=== PATIENT | male | born 1960 | race Caucasian/White ===

== ENCOUNTER 2022-09-16 01:41 | Inpatient (IN) | payer OTHER ==
[2022-09-16] VITALS (60 sets, daily range): BP systolic 93–169; BP diastolic 44–88
[~2022-09-16] VITALS: Ht 175.3 cm; Wt 75.7 kg
--- NOTE | 2022-09-16 01:58 | NUR ---
[id number] FROM [facility] C/O WORSENING SOB & WEAKNESS X3 WEEKS. UPON ARRIVAL SATING 99% ON O2 2LPM. ALSO HYPOTENSIVE, SBP AT 70-80'S.PT IS AAO X 4, NOT IN DISTRESS, BREATHING DOES NOT APPEAR LABORED. PT ATTACHED TO MONITOR AND PULSE OX. AWAITING MD AL
--- NOTE | 2022-09-16 02:01 | NUR ---
TOP SPOTTER AT BEDSIDE
--- NOTE | 2022-09-16 02:08 | NUR ---
EMT AT BEDSIDE FOR EKG
[2022-09-16] MEDS ORDERED: MORPHINE SULFATE INJ 2 MG/ML DISP.SYRIN IV ONE (02:30)
[2022-09-16] MEDS ORDERED: BUMETANIDE INJ 0.25 MG/ML VIAL IV ONE (02:30)
[2022-09-16] MEDS ORDERED: ONDANSETRON HCL/PF 4 MG/2 ML VIAL ONE ×2 (02:30→06:57)
[2022-09-16] MEDS ORDERED: FENTANYL PF 100MCG/2ML AMPUL IV ONE (02:30)
[2022-09-16] MEDS ORDERED: ONDANSETRON HCL/PF 4 MG/2 ML VIAL IV ONE ×2 (02:30→07:00)
[2022-09-16] MEDS ORDERED: BUMETANIDE INJ 0.25 MG/ML VIAL ONE (02:32)
[2022-09-16 03:06] LABS: BASOPHILS % (AUTO) 0.8 % (0.0-2.0); EOSINOPHILS % (AUTO) 1.3 % (0.0-6.0); HEMATOCRIT 35 % (39-51); HEMOGLOBIN 11.4 g/dL (13.5-17.5); LYMPHOCYTES # (AUTO) 0.6 K/uL (0.8-4.8); LYMPHOCYTES % (AUTO) 10.7 % (20.0-44.0); MEAN CORPUSCULAR HGB CONC 33 g/dl (31.0-36.0); MEAN CORPUSCULAR VOLUME 95 fL (80-96); MONOCYTES # (AUTO) 0.5 K/uL (0.1-1.30); MONOCYTES % (AUTO) 9.4 % (2.0-12.0); NEUTROPHILS % (AUTO) 77.8 % (43.0-81.0); PLATELET COUNT (AUTO) 214 K/uL (150-450); RED BLOOD CELL COUNT(AUTO) 3.69 MIL/uL (4.5-6.0); WHITE BLOOD COUNT (AUTO) 5.2 K/uL (4.3-11.0)
[2022-09-16 03:29] LABS: CALCIUM, SERUM 8.8 mg/dL (8.5-10.1); CARBON DIOXIDE 25 mmol/L (21-32); CHLORIDE 91 mmol/L (98-107); CREATININE 2.6 mg/dL (0.6-1.3); GLUCOSE 163 mg/dL (74-106); POTASSIUM 3.9 mmol/L (3.5-5.1); SODIUM SERUM 128 mmol/L (136-145); UREA NITROGEN, BLOOD 75 mg/dL (7-18)
--- NOTE | 2022-09-16 04:01 | NUR ---
DR GAYTAN ON THE PHONE WITH MELBA HAWKINS
[2022-09-16] MEDS ORDERED: NITROGLYCERIN 0.4 MG/TAB BOTTLE SL PRN (05:30)
[2022-09-16] MEDS ORDERED: NOREPINEPHRINE 4 MG/4 ML AMPUL IV ONE (05:36)
--- NOTE | 2022-09-16 05:45 | NUR ---
INITIATED LEVOPHED 8MG IN NS 250; @0.1MCG/KG/HR BP 95/56 ( NOT ENOUGHT LEVO VIALS TO MAKE CONCENTRATE OF 32MG AT THIS MOMENT) Addendum: 09/16/22 at 0549 by CHIDI INITIATED LEVOPHED 8MG IN NS 250; @0.1MCG/KG/MIN BP 95/56 ( NOT ENOUGHT LEVO VIALS TO MAKE CONCENTRATE OF 32MG AT THIS MOMENT)
[2022-09-16] MEDS: NOREPINEPHRINE 32 MG in IV NS 0.9% 218 ML IV PRN ×3 (05:46→09:42)
--- NOTE | 2022-09-16 05:50 | NUR ---
TITRATED LEVOPHED @0.2MCG/KG/MIN IN LEVOPHEN 8MG IN NS 250. BP 89/60
--- NOTE | 2022-09-16 07:15 | NUR ---
TELEPHONE CALL TO PHARMACY, ADVISED TO BRING LEVO 32 MG THERE IS NOT ENOUGH EARLIER. PER PHARMACIST, THEY WILL BRING BUT WILL HAVE TO WAIT, WILL ENDORSE TO AM SHIFT RN
--- NOTE | 2022-09-16 08:06 | NUR ---
GOT BED 258 ADMITTING INFORMED.
--- NOTE | 2022-09-16 08:16 | NUR ---
Report given to Juan RN-ICU, pt to go to Room# 256 Patient AOx4, VSS, discussed POVC with patient, pt verbalized agreement.
[2022-09-16] MEDS ORDERED: INSU100V7 SQ (08:29)
[2022-09-16] MEDS ORDERED: ATOR40TA PO (08:29)
[2022-09-16] MEDS ORDERED: BUME1TAB8 PO (08:29)
[2022-09-16] MEDS ORDERED: ASPI-1420 PO (08:29)
[2022-09-16] MEDS ORDERED: ABAC1TAB15 PO (08:29)
[2022-09-16] MEDS ORDERED: INSU100I14 SQ (08:29)
[2022-09-16] MEDS ORDERED: CHOL100043 PO (08:29)
[2022-09-16] MEDS ORDERED: CARV6.252 PO (08:29)
[2022-09-16] MEDS: ENOXAPARIN SODIUM 40 MG/0.4 ML DISP.SYRIN SQ SCH ×2 (09:00→10:19)
[2022-09-16] MEDS ORDERED: MORPHINE SULFATE INJ 2 MG/ML DISP.SYRIN IV PRN (10:00)
[2022-09-16] MEDS: MORPHINE SULFATE INJ 2 MG/ML DISP.SYRIN IV PRN ×2 (10:18→23:50)
[2022-09-16] MEDS: ASPIRIN EC 81 MG TABLET.DR PO SCH (10:18)
[2022-09-16] MEDS: BUMETANIDE INJ 4 MG in IV D5W 34 ML IV ONE ×2 (10:19→11:51)
--- NOTE | 2022-09-16 10:41 | NUR ---
PATIENT REFUSED ENOXAPARIN. EXPLAINED THE IMPORTANCE OF THE MEDICATION TO THE PATIENT. PATIENT STATES "EVEN THE THOUGHT OF NEEDLES MAKE ME QUEASY, I DON'T WANT IT." WILL CONTINUE PLAN OF CARE AND ANTICIPATE NEEDS.
[2022-09-16] MEDS: CEFTRIAXONE 1 G in IV D5W 50 ML IV SCH (10:51)
[2022-09-16] MEDS: IV NS 0.9% 250 ML IV PRN (10:52)
[2022-09-16] MEDS ORDERED: DoBUTamine 500 MG/250 ML PIGGYBACK IV ONE (11:30)
[2022-09-16] MEDS ORDERED: *INSULIN REGULAR(HUMULIN R)HUM 100 UNIT/ML VIAL SQ PRN (12:00)
[2022-09-16] MEDS ORDERED: DEXTROSE 50%-WATER 50 ML DISP.SYRIN IV PRN (12:00)
[2022-09-16] MEDS ORDERED: DOBUTamine 500 MG in IV D5W 210 ML IV PRN ×2 (12:00→13:00)
[2022-09-16] MEDS: BLOOD SUGAR DIAGNOSTIC 1 EACH STRIP VI SCH ×3 (12:22→23:05)
[2022-09-16] MEDS: INSULIN REGULAR, HUMAN 100 UNIT/ML 3 ML VIAL SQ PRN ×2 (13:19→16:53)
[2022-09-16] MEDS: DOBUTamine 500 MG in IV D5W 210 ML IV PRN (13:38)
[2022-09-16] MEDS: diphenhydrAMINE HCL 50 MG/ML VIAL IV PRN (16:45)
--- NOTE | 2022-09-16 19:09 | NUR ---
HAND OFF REPORT GIVEN TO KEESHA SMALL FOR CONTINUATION OF CARE.
[2022-09-17] VITALS (94 sets, daily range): BP systolic 90–146; BP diastolic 45–76
--- NOTE | 2022-09-17 00:49 | NUR ---
ICU/[employer] GUIDANCE COUNSELOR PT WAS GIVEN MORPHINE 4MG IVP FOR THIS PT FOR PAIN RATED 10/10 TO BACK. CHARGE NURSE MADE AWARE AND CARRIED OUT THIS ORDER. CALL LIGHT WITHIN REACH, WILL MONITOR THIS PT.
[2022-09-17 04:27] LABS: BASOPHILS % (AUTO) 0.5 % (0.0-2.0); EOSINOPHILS % (AUTO) 0.6 % (0.0-6.0); HEMATOCRIT 35 % (39-51); HEMOGLOBIN 11.5 g/dL (13.5-17.5); LYMPHOCYTES # (AUTO) 0.7 K/uL (0.8-4.8); LYMPHOCYTES % (AUTO) 9.9 % (20.0-44.0); MEAN CORPUSCULAR HGB CONC 33 g/dl (31.0-36.0); MEAN CORPUSCULAR VOLUME 94 fL (80-96); MONOCYTES # (AUTO) 0.6 K/uL (0.1-1.30); MONOCYTES % (AUTO) 8.9 % (2.0-12.0); NEUTROPHILS # (AUTO) 5.7 K/uL (1.8-8.9); NEUTROPHILS % (AUTO) 80.1 % (43.0-81.0); PLATELET COUNT (AUTO) 259 K/uL (150-450); RED BLOOD CELL COUNT(AUTO) 3.67 MIL/uL (4.5-6.0); WHITE BLOOD COUNT (AUTO) 7.1 K/uL (4.3-11.0)
[2022-09-17] MEDS: CEFTRIAXONE 1 G in IV D5W 50 ML IV SCH (04:32)
[2022-09-17 04:57] LABS: ALBUMIN 3.4 g/dL (3.4-5.0); BILIRUBIN,TOTAL 3.8 mg/dL (0.2-1.0); CALCIUM, SERUM 8.7 mg/dL (8.5-10.1); CREATININE 2.4 mg/dL (0.6-1.3); MAGNESIUM 2.9 mg/dL (1.8-2.4); PHOSPHORUS 4.9 mg/dL (2.5-4.9); POTASSIUM 4.7 mmol/L (3.5-5.1); TOTAL PROTEIN, SERUM 7.1 g/dL (6.4-8.2)
--- NOTE | 2022-09-17 05:00 | NUR ---
ICU/CALL OR CONTACT CENTRE TEAM LEADER PT WAS CONFUSED TRYING TO GET OUT OF BED, SUGAR CHECK FOUND BS 62 GAVE X2 OJ THEN RECHECK WAS 100.
[2022-09-17 05:04] LABS: THYROID STIMULATING HORMONE 1.178 uIU/mL (0.358-3.74)
--- NOTE | 2022-09-17 07:10 | NUR ---
RN OPENING NOTES RECEIVED REPORT FROM [facility] GEOVANNY THAO. PATIENT ON 4 LITERS SUPPLEMENTAL OXYGEN VIA NASAL CANULA. ALERT AND ORIENTED TIMES 4, CALLS FREQUENTLY. NORMAL SINUS RYTHYM ON THE MONITOR WITH RIGHT AV BLOCK. CONDOM CATH DRAINING OUTPUT. IV ACCESS ON LEFT AND RIGHT ANTECUBITAL 18 GAUGE AND RIGHT UPPER ARM MIDLINE 18 GAUGE. SAFETY MEASURES IMPLEMENTED, WILL CONTINUE PLAN OF CARE AND ANTICIPATE NEEDS.
[2022-09-17] MEDS: BLOOD SUGAR DIAGNOSTIC 1 EACH STRIP VI SCH ×4 (07:30→22:55)
--- NOTE | 2022-09-17 07:51 | NUR ---
LEVOPHED DISCONTINUED PER DOCTOR WHEELER. DOBUTAMINE IN PLACE TO MAINTAIN SYSTOLIC BP ABOVE 80 MMHG
[2022-09-17] MEDS: ENOXAPARIN SODIUM 40 MG/0.4 ML DISP.SYRIN SQ SCH (08:53)
[2022-09-17] MEDS: ASPIRIN EC 81 MG TABLET.DR PO SCH (08:53)
[2022-09-17] MEDS: INSULIN REGULAR, HUMAN 100 UNIT/ML 3 ML VIAL SQ PRN ×4 (08:55→22:56)
[2022-09-17] MEDS: DOBUTamine 500 MG in IV D5W 210 ML IV PRN (09:24)
[2022-09-17] MEDS: IV NS 0.9% 250 ML IV PRN (12:33)
[2022-09-17 15:55] LABS: CREATININE, URINE 40.6 MG/DL (30.0-125.0); URINE SODIUM, RANDOM < 5 mmol/l (40-220)
[2022-09-17 16:04] LABS: BILIRUBIN,URINE NEGATIVE (NEGATIVE); COLOR,URINE YELLOW (YELLOW); LEUKOCYTE ESTERASE ,URINE NEGATIVE (NEGATIVE); NITRITE, URINE NEGATIVE (NEGATIVE); PH,URINE 5.5 (5.0-8.0); PROTEIN,URINE NEGATIVE (NEGATIVE); UGLUCOSE NEGATIVE (NEGATIVE)
[2022-09-17 17:12] LABS: BACTERIA,URINE None seen /HPF (None Seen); SQUAMOUS EPITHELIAL CELL,UR 0-2 /HPF (None Seen); WBC,URINE 0-2 /HPF (0-3)
--- NOTE | 2022-09-17 19:02 | NUR ---
HAND OFF REPORT GIVEN TO DEIDRE KELLER FOR CONTINUATION OF CARE
--- NOTE | 2022-09-17 19:05 | NUR ---
RN OPENING NOTES PATIENT RECEIVED IN BED AWAKE, A/O X 4, ABLE TO MAKE NEEDS KNOWN, ON NASAL CANULA @ 4LPM SATING AT 94%, NO SOB NOTED, RESPIRATORY EVEN AND UNLABORED. AFEBRILE, NO S/S DISTRESS NOTED. WITH IZZY ML, LAC #18G AND RAC #18G PERIPHERAL LINE FLUSHED WITH NS, NO S/S OF INFILTRATION NOTED. RUNNING WITH DOBUTAMINE @ 5 MCG/KG/MIN. WITH CONDOM CATH, PATENT DRAINING WITH CLEAR YELLOW URINE VIA GRAVITY. ALL SAFETY MEASURES IMPLEMENTED, BED IN LOWEST POSITION, LOCKED, SIDE RAILS UP, CALL LIGHT WITHIN REACH. CONTINUE TO MONITOR.
--- NOTE | 2022-09-17 21:20 | NUR ---
RN NOTES PATIENT C/O PF 7/10 LOWER BACK PAIN, PATIENT DOESN'T WANT THE MORPHINE, PT. ASKING FOR NORCO, NOTIFIED DERRICK BOAT RUNNER MARISEL WEBSTER WITH NEW ORDER NORCO 5/325MG PO ONCE FOR PAIN NOTED AND CARRIED OUT.
--- NOTE | 2022-09-17 21:30 | NUR ---
RN NOTES NOTIFIED LUMBER PILER MARISEL WEBSTER, REGARDING PATIENT LATEST PROCALCITONIN- 2.16 AND TROPONIN- 115, PER MARISEL NO NEW ORDER.
[2022-09-17] MEDS ORDERED: HYDROCODONE/APAP 5/325MG TABLET PO PRN (22:00)
[2022-09-18] VITALS (65 sets, daily range): BP systolic 89–137; BP diastolic 23–102
[2022-09-18] MEDS: diphenhydrAMINE HCL 50 MG/ML VIAL IV PRN (01:50)
[2022-09-18] MEDS: DOBUTamine 500 MG in IV D5W 210 ML IV PRN (03:02)
[2022-09-18 04:40] LABS: BASOPHILS % (AUTO) 0.4 % (0.0-2.0); EOSINOPHILS % (AUTO) 1.8 % (0.0-6.0); HEMATOCRIT 33 % (39-51); HEMOGLOBIN 10.9 g/dL (13.5-17.5); LYMPHOCYTES # (AUTO) 0.4 K/uL (0.8-4.8); LYMPHOCYTES % (AUTO) 8.5 % (20.0-44.0); MEAN CORPUSCULAR HGB CONC 33 g/dl (31.0-36.0); MEAN CORPUSCULAR VOLUME 94 fL (80-96); MONOCYTES # (AUTO) 0.4 K/uL (0.1-1.30); MONOCYTES % (AUTO) 8.7 % (2.0-12.0); NEUTROPHILS # (AUTO) 3.8 K/uL (1.8-8.9); NEUTROPHILS % (AUTO) 80.6 % (43.0-81.0); PLATELET COUNT (AUTO) 192 K/uL (150-450); RED BLOOD CELL COUNT(AUTO) 3.48 MIL/uL (4.5-6.0); WHITE BLOOD COUNT (AUTO) 4.7 K/uL (4.3-11.0)
[2022-09-18 04:43] LABS: CALCIUM, SERUM 7.9 mg/dL (8.5-10.1); CREATININE 1.9 mg/dL (0.6-1.3); POTASSIUM 3.9 mmol/L (3.5-5.1)
[2022-09-18] MEDS ORDERED: LORAZEPAM 0.5 MG TABLET PO ONE (05:30)
[2022-09-18] MEDS: CEFTRIAXONE 1 G in IV D5W 50 ML IV SCH (05:33)
[2022-09-18] MEDS: BLOOD SUGAR DIAGNOSTIC 1 EACH STRIP VI SCH ×3 (08:06→17:03)
[2022-09-18] MEDS: ASPIRIN EC 81 MG TABLET.DR PO SCH (08:39)
[2022-09-18] MEDS: ENOXAPARIN SODIUM 40 MG/0.4 ML DISP.SYRIN SQ SCH (08:42)
[2022-09-18 10:06] LABS: ALBUMIN 3.1 g/dL (3.4-5.0); BILIRUBIN,DIRECT 2.3 mg/dL (0.0-0.2); TOTAL PROTEIN, SERUM 6.5 g/dL (6.4-8.2)
[2022-09-18] MEDS: INSULIN REGULAR, HUMAN 100 UNIT/ML 3 ML VIAL SQ PRN ×2 (11:39→17:50)
--- NOTE | 2022-09-18 13:01 | NUR ---
PATIENT REMAINS STABLE AT THIS TIME, NO SSx OF ACUTE DISTRESS NOTED; BEDSIDE REPORT GIVEN TO CINDA-ARIANNA FOR CONTINUITY OF CARE.
--- NOTE | 2022-09-18 13:05 | NUR ---
RN NOTE REPORT RECEIVED FROM ARIANNA PEÑA. PT STABLE AT THIS TIME. PT IS IN BED WITH HOB >30 DEGREES AND ON NC 4L O2 SAT 93% TOLERATING WELL WITH NO SIGNS OF DISTRESS OR LABORED BREATHING. PT IS A/OX4. IV ACCESS R AC 18G AND L AC AND R UA ML INFUSING WITH DOBUTAMINE @5MCG/MIN. BED IS LOCKED IN LOWEST POSITION X2 BED RAILS UP CALL LIGHT IS WITHIN REACH AND ALL HOSPITAL SAFETY MEASURES ARE IN PLACE. WILL CONTINUE TO MONITOR THIS SHIFT.
--- NOTE | 2022-09-18 15:00 | NUR ---
RN NOTE: [place] THIS NURSE MADE CONTACT WITH ARIANNA HASSAN AT [facility] ICU [phone] AND GAVE REPORT. ACCEPTING MD WILL BE DR. JENNA DELAROSA. PT WILL BE TRANSFERRED TO ROOM #[id number] AND WILL BE PICKED UP BY [facility] THIS EVENING AT 1700.
--- NOTE | 2022-09-18 18:09 | NUR ---
RN NOTE TRANSFER TO [facility] PRN TRANSPORT #[id number] ARRIVED TO ICU NURSE AND TRANSFER PT TO [facility]. PT SIGNED BELONGINGS LIST CONFIRMING BEING TRANSFERRED WITH: ONE BAG, UPPER DENTURES, AND ONE BLACK CELL PHONE. PT HAD GLASSES EARLIER TODAY, BUT WAS GIVEN TO FRIEND WHO TOOK GLASSES HOME. PT INFORMATION PACKET GIVEN TO AMBULANCE COMPANY. PT TRANSFERRED USING ACLS PROTOCOLS AND STABLE AT THIS TIME. REPORT GIVEN TO [facility] AND REPORT ALREADY GIVEN TO [facility], ARIANNA HASSAN. THIS NURSE CALLED [facility] TO INFORM PT BEING PICKED UP AT THIS TIME.
== END 2022-09-18 18:49 | disposition short-term general hospital (02) | DRG 280 ==
LOC: ER 01:46 → ICU 08:12
PROVIDERS: ADMIT Internal Medicine; ATTEND Internal Medicine
PROC: 05H933Z Insertion of Infusion Device into Right Brachial Vein, Percutaneous Approach (ICD-10-PCS; principal; 2022-09-16)
DX: I13.0 Hypertensive heart and chronic kidney disease with heart failure and stage 1 through stage 4 chronic kidney disease, or unspecified chronic kidney disease (principal); I50.23 Acute on chronic systolic (congestive) heart failure; I21.4 Non-ST elevation (NSTEMI) myocardial infarction; N17.0 Acute kidney failure with tubular necrosis; J96.01 Acute respiratory failure with hypoxia; R57.0 Cardiogenic shock; K83.1 Obstruction of bile duct; E87.1 Hypo-osmolality and hyponatremia; Z66 Do not resuscitate; N18.9 Chronic kidney disease, unspecified; Z20.822 Contact with and (suspected) exposure to COVID-19; I25.10 Atherosclerotic heart disease of native coronary artery without angina pectoris; Z95.1 Presence of aortocoronary bypass graft; Z89.512 Acquired absence of left leg below knee; M79.2 Neuralgia and neuritis, unspecified; Z79.82 Long term (current) use of aspirin; Z79.4 Long term (current) use of insulin; I42.9 Cardiomyopathy, unspecified; F32.A Depression, unspecified; E11.22 Type 2 diabetes mellitus with diabetic chronic kidney disease; E11.51 Type 2 diabetes mellitus with diabetic peripheral angiopathy without gangrene; I27.20 Pulmonary hypertension, unspecified; F41.9 Anxiety disorder, unspecified; I34.0 Nonrheumatic mitral (valve) insufficiency; Z79.899 Other long term (current) drug therapy; K76.1 Chronic passive congestion of liver
CPT/HCPCS: 36410; 36415; 71045-TC; 76705-TC; 76770-TC; 80048-TC; 80053-TC; 80076-TC; 81001; 82570-TC; 82962-TC; 83735-TC; 83880; 84100-TC; 84300-TC; 84443-TC; 84484-TC; 85025-TC; 93307-TC; 97530-TC; A4223; A4349; C9803; G0378; J0696; J1200; J1250; J1650; J1815; J2270; J2405; J3010; J3490; J7050; J7060